=== PATIENT | female | born 1980 | race Caucasian/White ===

== ENCOUNTER → 2022-07-08 14:55 | Outpatient (BNVA) | payer OTHER, SELFPAY | PROVIDERS: PCP Family Medicine; Visit Provider Nurse Practitioner Family | DX: R68.89 Other general symptoms and signs (principal); R10.9 Unspecified abdominal pain; A08.4 Viral intestinal infection, unspecified; R50.9 Fever, unspecified; R30.0 Dysuria | CPT/HCPCS: 80053; 81000; 85025; 87086; 87400; 87426 ==

== ENCOUNTER → 2022-10-23 11:25 | Outpatient (BNVA) | payer OTHER, SELFPAY | PROVIDERS: PCP Family Medicine; Visit Provider Nurse Practitioner Family | DX: J22 Unspecified acute lower respiratory infection (principal); N39.0 Urinary tract infection, site not specified; B96.89 Other specified bacterial agents as the cause of diseases classified elsewhere | CPT/HCPCS: 71046; 81000 ==